=== PATIENT | male | born 1970 | race Two or more races ===

== ENCOUNTER 2025-07-02 17:27 | Emergency (ER) | payer MEDICAID, SELFPAY ==
[2025-07-02 17:29] VITALS: PULSE 78; O2SAT 97; BMI 30.2
[2025-07-02 18:03] VITALS: BP 134/81; PULSE 81; RESP 18; TEMP 36.4; O2SAT 98
--- NOTE | 2025-07-02 18:38 | PD.EDRME ---
Rapid Medical Screening Exam RME Arrival date/time: 07/02/25 17:27 Chief Complaint: Abdominal Pain Time Seen by Provider: 07/02/25 18:12 Vital signs: Vital Signs Temperature 97.6 F 07/02/25 18:03 Pulse Rate 81 07/02/25 18:03 Respiratory Rate 18 07/02/25 18:03 Blood Pressure 134/81 H 07/02/25 18:03 Pulse Oximetry (%) 98 07/02/25 18:03 Oxygen Delivery Method Room Air 07/02/25 18:03 Vital signs reviewed by provider: Yes RME Narrative: 55-year-old male presents to the ED with a complaint of abdominal pain, dysuria, weakness, diaphoresis, and nausea. He states the dysuria has been present for approximately 2 months but the last few days he feels much worse with the other associated symptoms. I have greeted and performed a focused initial assessment of this patient. A comprehensive ED assessment and evaluation of the patient, analysis of all test results, and completion of the medical decision making process will be conducted by additional ED providers.
--- NOTE | 2025-07-02 19:18 | PD.EDABDPN ---
ED Abdominal Pain RME/HPI General Chief Complaint: Abdominal Pain Stated complaint: LOWER ABD PAIN X 1 WK 09/07 Time seen by provider: 07/02/25 18:12 Arrival date/time: 07/02/25 17:27 RME / HPI RME / HPI narrative: 55-year-old male presents to the ED with a complaint of abdominal pain, dysuria, weakness, diaphoresis, and nausea. He states the dysuria has been present for approximately 2 months but the last few days he feels much worse with the other associated symptoms. I have greeted and performed a focused initial assessment of this patient. A comprehensive ED assessment and evaluation of the patient, analysis of all test results, and completion of the medical decision making process will be conducted by additional ED providers. This section includes all my notes and documentations, including HPI, PE, and ED course. Truman Marie MD HPI: ROS: All negative except as documented in HPI. Physical Exam: General: Alert and oriented. No acute distress when remaining still. Eyes: Conjunctivae and lids clear. ENT: No nasal congestion. Neck: Supple. Heart: RRR. Lungs: No respiratory distress. Good air movement. No rhonchi, wheezing, rales. Abdomen: Soft and nontender. Normal bowel sounds. No distension. No rebound or guarding. Back: No CVA tenderness. Skin: Warm and dry. Neuro: Alert and oriented X 3. I reviewed EMS and correction notes. I reviewed all diagnostic test results. My review of the US soft tissue neck report is Blood tests and urine tests At this point, diagnoses include Treatment here included Significant improvement Not yet done: I discussed the case with our hospitalist. About the presentation and exam and diagnostics and treatments here. And need of further care in the hospital. Will accept the patient. Not yet done: Based on my best medical judgment, made decision no further evaluation or treatment indicated at this time. Patient understands and agrees to the discharge instructions customized and printed, see below. Truman Marie MD Related Data Previous Rx's ?Medication ?Instructions ?Recorded acetaminophen 500 mg capsule 1,000 mg (2 x 500 mg) PO Q8HR PRN 08/23/24 pain #30 caps Allergies Allergy/AdvReac Type Severity Reaction Status Date / Time aspirin Allergy Intermediate Rash Verified 07/02/25 17:34 Review of Systems Review of Systems Systems Reviewed: All systems reviewed, normal except as documented Past Medical History Past Medical History NEUROLOGIC: Negative Neurological Disorders CARDIAC: Positive Cardiac Disorders Social History SMOKING STATUS: Current every day smoker ED Exam Narrative Physical exam: As noted in HPI. Course Quality Measures none Vital Signs Vital signs: Vital Signs Temperature 97.6 F 07/02/25 18:03 Pulse Rate 81 07/02/25 18:03 Respiratory Rate 18 07/02/25 18:03 Blood Pressure 134/81 H 07/02/25 18:03 Pulse Oximetry (%) 98 07/02/25 18:03 Oxygen Delivery Method Room Air 07/02/25 18:03 Abdominal Pain MDM Patient data External records reviewed:: [facility] previous records (Per chart review, patient has no relevant previous ED visits.) Clinical information provided by:: patient Social determinants that could affect healthcare access:: none Patient has the following chronic illnesses:: none How is presenting disease/condition affected by chronic disease/condition?: no chronic disease Evaluation data The following diagnostics were reviewed and interpreted by me:: lab results and radiology exam(s) Lab and/or radiology exams considered but not ordered:: none Medications / Prescriptions Medications or Prescriptions considered but not ordered:: none Discharge Plan Prescriptions/Referrals Prescriptions/Med Rec: No Action acetaminophen 500 mg capsule 1,000 mg PO Q8HR PRN (Reason: pain) Qty: 30 0RF Patient/Caregiver Discharge Instructions Print Language: Icelandic
--- NOTE | 2025-07-02 20:03 | PD.EDMALE ---
ED Male Genitalurinary RME/HPI General Chief complaint: Abdominal Pain Stated complaint: LOWER ABD PAIN X 1 WK 09/07 Time Seen by Provider: 07/02/25 18:12 Arrival date/time: 07/02/25 17:27 RME / HPI RME / HPI Narrative: 55-year-old male presents to the ED with a complaint of abdominal pain, dysuria, weakness, diaphoresis, and nausea. He states the dysuria has been present for approximately 2 months but the last few days he feels much worse with the other associated symptoms. I have greeted and performed a focused initial assessment of this patient. A comprehensive ED assessment and evaluation of the patient, analysis of all test results, and completion of the medical decision making process will be conducted by additional ED providers. This section includes all my notes and documentations, including HPI, PE, and ED course. Truman Marie MD HPI: 55yo male here with dysuria x 1 month. Patient has urinary frequency and nausea. No hematuria, abdominal pain, fever, back pain, or vomiting. No other complaints reported. ROS: All negative except as documented in HPI. Physical Exam: General: Alert and oriented. No acute distress when remaining still. Eyes: Conjunctivae and lids clear. ENT: No nasal congestion. Neck: Supple. Heart: RRR. Lungs: No respiratory distress. Good air movement. No rhonchi, wheezing, rales. Abdomen: Soft and nontender. Normal bowel sounds. No distension. No rebound or guarding. Back: No CVA tenderness. Skin: Warm and dry. Neuro: Alert and oriented X 3. I reviewed all diagnostic test results. My review of the CT abdomen pelvis report is NAD. Blood tests are unremarkable. UA remarkable for 1131 RBCs and 8 WBCs. UDS positive for methamphetamines, cocaine, and marijuana. At this point, diagnoses include Cystitis, Hematuria, Cholelithiasis, Drug use. Treatment here included Tylenol with Codeine, Ibuprofen, Zofran. Significant treatment noted. Recommended outpatient management. Based on my best medical judgment, made decision no further evaluation or treatment indicated at this time. Patient understands and agrees to the discharge instructions customized and printed, see below. Discharge Instructions from Dr. Marie printed for you: 1. After extensive evaluation, there is no emergency. 2. Your diagnoses include cystitis and hematuria and cholelithiasis and drug use (including methamphetamine and cocaine and marijuana). See attached handouts. 3. Take cefdinir for your cystitis. To flush your urine system, increase oral fluid and maintain clear urine. If dark or yellow or bloody, increase oral fluid. 4. See a private doctor outside the ER (your need care not available here in the ER) on 07/04/2025 for recheck and further care. Ask to review all test results and official radiology reports, to make sure you receive all necessary follow-ups and monitoring. Ask for referral to see urologist to find cause/treatment of your blood in urine, extremely important to make sure there is no serious condition such as cancer. Ask for referral to see a surgeon to consider elective surgery of your gallbladder. Ask for help to quit all drugs, to prevent severe and potentially fatal injuries and illnesses. 5. Seek immediate medical care with worsening or with any concerns. Truman Marie MD Related Data Previous Rx's ?Medication ?Instructions ?Recorded acetaminophen 500 mg capsule 1,000 mg (2 x 500 mg) PO Q8HR PRN 08/23/24 pain #30 caps cefdinir 300 mg capsule 300 mg PO BID #14 caps 07/03/25 Allergies Allergy/AdvReac Type Severity Reaction Status Date / Time aspirin Allergy Intermediate Rash Verified 07/02/25 17:34 Review of Systems Review of Systems Systems Reviewed: All systems reviewed, normal except as documented Past Medical History Past Medical History NEUROLOGIC: Negative Neurological Disorders CARDIAC: Positive Cardiac Disorders Social History SMOKING STATUS: Current every day smoker ED Exam Narrative Physical exam: As noted in HPI. Course Quality Measures none Orders Category Date Time Status Bladder Scan NEEDED Care 07/02/25 21:[address] abdomen pelvis wo con Stat Exams 07/02/25 21:32 Completed Bilirubin,Direct Stat Lab 07/02/25 22:10 Completed CBC Stat Lab 07/02/25 22:10 Completed CMP [Comprehensive Metabolic Panel] Stat Lab 07/02/25 22:10 Completed Drug Screen,Urine Stat Lab 07/02/25 20:11 Completed Magnesium Stat Lab 07/02/25 22:10 Completed UA, C/S IF [Urinalysis, C/S if Indicated] Stat Lab 07/02/25 20:11 Completed ACETAMINOPHEN w/COD 300-30 [Tylenol w/Cod #3] Med 07/02/25 21:33 Discontinued 2 tab PO X1 ONE Ibuprofen Tab [Motrin Tab] Med 07/02/25 21:33 Discontinued 600 mg PO X1 ONE Ondansetron Odt [Zofran Odt] Med 07/02/25 21:33 Discontinued 4 mg PO X1 ONE Vital Signs Vital signs: Vital Signs Temperature 97.6 F 07/02/25 18:03 Pulse Rate 81 07/02/25 18:03 Respiratory Rate 18 07/02/25 18:03 Blood Pressure 134/81 H 07/02/25 18:03 Pulse Oximetry (%) 98 07/02/25 18:03 Oxygen Delivery Method Room Air 07/02/25 18:03 Urogenital - Male MDM Narrative MDM Narrative:: 55yo male here with dysuria x 1 month. Patient has urinary frequency and nausea. No hematuria, abdominal pain, fever, back pain, or vomiting. No other complaints reported. Patient data External records reviewed:: [facility] previous records (Per chart review, patient has no relevant previous ED visits.) Clinical information provided by:: patient Social determinants that could affect healthcare access:: none Patient has the following chronic illnesses:: none How is presenting disease/condition affected by chronic disease/condition?: no chronic disease Evaluation data The following diagnostics were reviewed and interpreted by me:: lab results and radiology exam(s) Lab and/or radiology exams considered but not ordered:: none Interpretation Summary: I reviewed all diagnostic test results. My review of the CT abdomen pelvis report is NAD. Blood tests are unremarkable. UA remarkable for 1131 RBCs and 8 WBCs. UDS positive for methamphetamines, cocaine, and marijuana. Medications / Prescriptions Medications or Prescriptions considered but not ordered:: none Medication administrations:: Medication Administration History Discontinued Medications Acetaminophen/Codeine Phosphate (Acetaminophen W/Cod 300-30 Tablet) 2 tab PO X1 ONE Stop: 07/02/25 21:34 Last Admin: 07/02/25 23:41 Dose: 2 tab Documented By: EE Ibuprofen (Ibuprofen Tab 600 Mg Tablet) 600 mg PO X1 ONE Stop: 07/02/25 21:34 Last Admin: 07/02/25 23:42 Dose: 600 mg Documented By: EE Ondansetron HCl (Ondansetron Odt 4 Mg Tabrap) 4 mg PO X1 ONE; Protocol Stop: 07/02/25 21:34 Last Admin: 07/02/25 23:42 Dose: 4 mg Documented By: EE Tylenol with Codeine, Ibuprofen, Zofran. Consultations Consultation(s) initiated? (list below): No Diagnosis Urogenital Male Differential Diagnosis: urinary tract infection, acute retention of urine and other (kidney stone, cystitis) Most likely diagnosis given after review of the tests above:: Cystitis, Hematuria, Cholelithiasis, Drug use Admission Indicated Admission indicated?: not indicated Explain why admission is indicated or not indicated:: With significant improvement and no condition needing emergent intervention, there was no indication for admission. Admission Request Was there a request for admission?: No Disposition Plan Disposition Plan: Discharge Discharge Attestation Discharge Attestation: The patient and all family members were given an opportunity to ask questions and understood the discharge instructions. Discharge instructions specifically effects, indications for sooner follow up or return to the emergency department, and the expected course of current diagnosis. Patient condition: Stable Discharge Plan Plan Patient Disposition: HOME (Self Care) Prescriptions/Referrals Prescriptions/Med Rec: New cefdinir 300 mg capsule 300 mg PO BID Qty: 14 0RF No Action acetaminophen 500 mg capsule 1,000 mg PO Q8HR PRN (Reason: pain) Qty: 30 0RF Referrals: No Primary/Family,Physician [Primary Care Provider] - In 1 week Problem List Clinical Impression: Cystitis, Hematuria, Cholelithiasis, Drug use Patient/Caregiver Discharge Instructions Discharge Activity: activity as tolerated Education Materials: ED Drug Abuse, ED Gallstones with Biliary Colic, ED Hematuria, ED Bladder Infection, Male (Adult) Additional Instructions: Discharge Instructions from Dr. Marie printed for you: 1. After extensive evaluation, there is no emergency. 2. Your diagnoses include cystitis and hematuria and cholelithiasis and drug use (including methamphetamine and cocaine and marijuana). See attached handouts. 3. Take cefdinir for your cystitis. To flush your urine system, increase oral fluid and maintain clear urine. If dark or yellow or bloody, increase oral fluid. 4. See a private doctor outside the ER (your need care not available here in the ER) on 07/04/2025 for recheck and further care. Ask to review all test results and official radiology reports, to make sure you receive all necessary follow-ups and monitoring. Ask for referral to see urologist to find cause/treatment of your blood in urine, extremely important to make sure there is no serious condition such as cancer. Ask for referral to see a surgeon to consider elective surgery of your gallbladder. Ask for help to quit all drugs, to prevent severe and potentially fatal injuries and illnesses. 5. Seek immediate medical care with worsening or with any concerns. Print Language: Thai Stand Alone Forms: Erika Award Info., Patient Portal Info Letter
[2025-07-02 20:17] LABS: Collection Type, Urine Clean Catch
[2025-07-02 21:17] VITALS: BP 122/82; PULSE 68; RESP 18; TEMP 36.4; O2SAT 97
[2025-07-02 21:28] LABS: Bilirubin,Urine Negative (Negative); Blood,Urine 3+ (Negative); Calcium Oxalate Crystals,Urine 1+; Clarity,Urine Turbid (Clear/Hazy); Color,Urine Yellow (Lt Yel-Yel); Culture Indicated,Urine Not Indicated; Glucose, Urine Negative (Negative); Hyaline Casts,Urine < 1 /hpf (0-1); Ketones,Urine Negative (Negative); Leukocyte Esterase,Urine Negative (Negative); Nitrite,Urine Negative (Negative); PH,Urine 6.0 (5.0-7.0); Protein,Urine 2+ (Neg - Trace); RBC,Urine 1171 /hpf (0-3); Specific Gravity,Urine 1.032 (1.001-1.035); Squamous Epithelial Cell,Urine < 1 /hpf (0-5); Urobilinogen,Urine Negative mg/dL (0.0-1.0); WBC,Urine 8 /hpf (0-5)
[2025-07-02 21:29] LABS: Sperm,Urine Present
--- NOTE | 2025-07-02 21:32 | XR_ITS ---
Examination: CT abdomen and pelvis without contrast. Coronal 3-D reconstructions. Sagittal 2-D reconstructions. Date and time of exam:July 02, 2025 11:24 PM INDICATIONS: Lower abdominal pain beginning one week ago CTDI: vol (mGy): 5.80 DLP: (mGycm): 310 Technique: Axial images of the abdomen have been obtained, 3 mm slice thickness Intravenous contrast material has not been administered. Low dose protocols were performed. One or more of the following dose reduction techniques were used; automated exposure control, adjustment of the mA and/or KV according to patient size, use of iterative reconstruction technique. Findings: No focal liver lesions or biliary tract dilatation Tiny gallstones Multiple dense opacities in the spleen which may represent embolization material or clips No pancreatic mass 6 mm upper right renal calculus, no hydronephrosis or renal calculi Aorta normal size No pericecal inflammatory changes No bowel obstruction 27 mm bladder calculus Mild prostatomegaly Urinary bladder wall thickening up to 8 mm Moderate lumbar spondylosis IMPRESSION: Cholelithiasis 6 mm right renal calculus, no hydronephrosis or ureteral calculi 27 mm bladder calculus Urinary bladder wall thickening, consider cystitis
[2025-07-02 22:20] LABS: Basophils # (Auto) 0.1 Thou/mm3 (0.0-0.2); Basophils % (Auto) 1 % (0-2.5); Eosinophils # (Auto) 0.6 Thou/mm3 (0.0-0.5); Eosinophils % (Auto) 8 % (0-10); Hematocrit 44.8 % (41.0-53.0); Hemoglobin 14.9 g/dL (13.5-16.0); Immature Granulocytes Auto 0.02 Thou/mm3 (0.00-0.00); Lymphocytes # (Auto) 1.9 Thou/mm3 (1.0-4.8); Lymphocytes % (Auto) 26 % (10-50); Mean Corpuscular HGB Conc 33.3 g/dl (31.0-37.0); Mean Corpuscular Hemoglobin 29.4 pg (25.0-35.0); Mean Corpuscular Volume 88 fL (80-100); Monocytes # (Auto) 0.9 Thou/mm3 (0.0-0.8); Monocytes % (Auto) 12 % (0-12); Neutrophils # (Auto) 4.0 Thou/mm3 (1.8-7.7); Neutrophils % (Auto) 54 % (37-80); Nucleated Red Blood Cell # 0.00 Thou/mm3 (0.00-0.00); Nucleated Red Blood Cell % 0 /100 WBC (0); Platelet Count 267 Thou/mm3 (140-440); RDW Standard Deviation 44.8 fL (35.1-43.9); Red Blood Count 5.07 Miln/mm3 (4.50-5.90); White Blood Count 7.4 Thou/mm3 (3.8-10.6)
[2025-07-02 22:43] LABS: Alanine Aminotransferase 16 U/L (10-49); Albumin, Serum 4.9 gm/dL (3.5-5.0); Albumin/Globulin Ratio 1.9 (1.2-2.2); Alkaline Phosphatase 104 U/L (46-116); Anion Gap 9 (7-16); Aspartate Amino Transferase 17 U/L (0-34); BUN/Creatinine Ratio 21 Ratio (12-20); Bilirubin,Direct 0.1 mg/dL (0.0-0.3); Bilirubin,Total 0.4 mg/dL (0.3-1.2); Blood Urea Nitrogen 21 mg/dL (9-23); Calcium 10.2 mg/dL (8.3-10.6); Calcium (Corrected) 10.2 mg/dL (8.5-10.1); Carbon Dioxide 24.4 mMol/L (20.0-31.0); Chloride 109 mMol/L (98-107); Creatinine (Component) 1.0 mg/dL (0.6-1.3); Estimated Creatinine Clearance 71.3 mL/min (>60); Globulin 2.6 gm/dL (2.3-3.5); Glucose 95 mg/dL (74-106); Magnesium 2.3 mg/dL (1.6-2.6); Osmolality,Calculated 286 (275-295); Potassium 4.0 mMol/L (3.4-5.1); Sodium 142 mMol/L (136-145); Total Protein 7.5 gm/dL (5.7-8.2); eGFR > 60 See Note
[2025-07-02] MEDS: ACETAMINOPHEN w/COD 300-30 TABLET 2 TAB PO (23:41)
[2025-07-02] MEDS: IBUPROFEN TAB 600 MG TABLET PO (23:42)
[2025-07-02] MEDS: ONDANSETRON ODT 4 MG TABRAP PO (23:42)
[2025-07-03 00:06] LABS: Amphetamine/Methamp Scrn,U Positive (Negative); Barbiturate Screen,Urine Negative (Negative); Benzodiazepines Screen,Urine Negative (Negative); Benzoylecgonine Screen, Ur Positive (Negative); Fentanyl Screen,Urine Negative (Negative); Opiate Screen,Urine Negative (Negative); THC Screen,Urine Positive (Negative)
[2025-07-03 02:18] VITALS: BP 121/65; PULSE 68; RESP 18; TEMP 36.2; O2SAT 97
== END 2025-07-03 02:22 | disposition home or self-care (01) ==
PROVIDERS: Emergency Provider Emergency Medicine
DX: K80.20 Calculus of gallbladder without cholecystitis without obstruction (principal); N30.91 Cystitis, unspecified with hematuria; F15.90 Other stimulant use, unspecified, uncomplicated; F14.90 Cocaine use, unspecified, uncomplicated; F12.90 Cannabis use, unspecified, uncomplicated
CPT/HCPCS: 36415; 74176; 80053; 80307; 81001; 82248; 83735; 85025; 87086; 99283; Q0162; A9270